=== PATIENT | female | born 1930 | race Caucasian/White ===

== ENCOUNTER 2017-04-03 13:27 | Emergency (ER) | payer MEDICARE, BC ==
[2017-04-03 13:52] VITALS: BP 111/57
--- NOTE | 2017-04-03 14:41 | EDM.PDOC ---
ED HPI GENERAL MEDICAL PROBLEM - General Chief Complaint: Abdominal Pain Stated Complaint: WEAKNESS,PAIN Time Seen by Provider: 04/03/17 13:55 Source of Information: Reports: Patient, Family, Other (pt fell about 1.5 weeks ago and she is having pain in the rt upper abdoman and rt chest. ) - History of Present Illness Onset: Gradual Duration: Day(s):, Other ( Pt has been somewht constipated. ) Location: Reports: Chest, Abdomen Associated Symptoms: Reports: Chest Pain, Other ( Pt did have pneumonia in jun. ) Right Lower Abdominal Pain Score (Numeric/FACES): 7 - Related Data Allergies Allergy/AdvReac Type Severity Reaction Status Date / Time No Known Allergies Allergy Verified 07/03/16 12:27 Home Meds: Home Meds Albuterol [Ventolin HFA] 2 inh INH Q4HR PRN 07/03/16 [History] Allopurinol 300 mg PO DAILY 07/03/16 [History] Aspirin 81 mg PO DAILY 07/03/16 [History] Cyanocobalamin (Vitamin B-12) [B-12] 1,000 mcg PO DAILY 07/03/16 [History] Furosemide 80 mg PO BID 07/03/16 [History] Gabapentin 1,200 mg PO BEDTIME 07/03/16 [History] Gabapentin 600 mg PO DAILY 07/03/16 [History] Losartan/Hydrochlorothiazide [Losartan-HCTZ 100-12.5 MG] 1 tab PO DAILY [History] Metoprolol Tartrate 25 mg PO BID 07/03/16 [History] Nitroglycerin 0.4 mg SL ASDIRECTED PRN 07/03/16 [History] Potassium Chloride 20 meq PO BID 07/03/16 [History] cycloSPORINE [Restasis] 1 drp TOP BID 07/03/16 [History] glipiZIDE [Glipizide] 5 mg PO BID 07/03/16 [History] metFORMIN [Glucophage] 500 mg PO DAILY 07/03/16 [History] Citalopram [Citalopram HBr] 10 mg PO DAILY #30 tablet 07/09/16 [Rx] Warfarin [Coumadin] 1.25 mg PO SuTuWeThSa@1300 tablet 07/09/16 [Rx] Warfarin [Coumadin] 2.5 mg PO MoFr@1300 tablet 07/09/16 [Rx] rOPINIRole [Requip] 0.5 mg PO BEDTIME #30 tablet 07/09/16 [Rx] Allopurinol [Zyloprim] 300 mg PO DAILY 04/03/17 [History] Gabapentin [Neurontin] 600 mg PO ACBREAKFAST 04/03/17 [History] Metolazone [Metolazone] 1 tab PO ASDIRECTED 04/03/17 [History] Past Medical History HEENT History: Reports: Impaired Vision Cardiovascular History: Reports: Afib, High Cholesterol, Hypertension, Other ( See Below) Other Cardiovascular History: SA node dysfunction, mitral valve insufficiency, aortic valve insufficiency,tricuspid valve disease, Respiratory History: Reports: Other (See Below) Other Respiratory History: congestive heart failure Genitourinary History: Reports: Other (See Below) Other Genitourinary History: hyperuricemia 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: Musculoskeletal History: Reports: Osteoarthritis Neurological History: Reports: Other (See Below) Other Neuro History: restless leg syndrome Endocrine/Metabolic History: Reports: Diabetes, Type II Hematologic History: Reports: Anemia Oncologic (Cancer) History: Reports: Other (See Below) Other Oncologic History: malignant neoplasm lip Dermatologic History: Reports: Other (See Below) Other Dermatologic History: malignant neoplasm lip - Past Surgical History Cardiovascular Surgical History: Reports: Pacer Respiratory Surgical History: Reports: None Female Surgical History: Reports: Oophorectomy Social & Family History - Tobacco Use Smoking Status *Q: Never Smoker Second Hand Smoke Exposure: No - Caffeine Use Caffeine Use: Reports: Coffee - Recreational Drug Use Recreational Drug Use: No ED ROS GENERAL - Review of Systems Review Of Systems: See Below Constitutional: Reports: No Symptoms HEENT: Reports: No Symptoms Respiratory: Reports: No Symptoms Cardiovascular: Reports: No Symptoms Endocrine: Reports: No Symptoms GI/Abdominal: Reports: Abdominal Pain, Other (pt has pain in the rt upper abdoman. She also has pain in the rt chest area under the scapula. She hurts when she moves and she has difficulty getting up and down. She has bruising on her back and some on her abdoman. ) : Reports: No Symptoms Musculoskeletal: Reports: No Symptoms Skin: Reports: No Symptoms ED EXAM, GI/ABD - Physical Exam Exam: See Below Text/Narrative:: Pt arrived with pain in the upper rt abdoman and pain in the rt post chest. She hurts to move . About 1.5 weeks ago she slide off the bed and twisted slightly. Exam Limited By: No Limitations General Appearance: Alert, Mild Distress Ears: Normal TMs Nose: Normal Inspection Throat/Mouth: Normal Inspection Head: Atraumatic Neck: Normal Inspection Respiratory/Chest: Other (pt is tender in the rt chest and also in the post chest below the scapula. She has some tenderness under the rib cage on the rt. ) Cardiovascular: Regular Rate, Rhythm GI/Abdominal Exam: Tender, Other ( Mild rt upper bdomanl tenderness. ) (Female) Exam: Deferred Rectal (Female) Exam: Deferred Back Exam: No: Other ( bruised on the rt back area below the scapula. She is tender topalpate. ) Extremities: Normal Inspection Neurological: Alert, Oriented, Normal Cognition Course - Vital Signs Last Recorded V/S: Last Vital Signs Temp 35.9 C 04/03/17 13:55 Pulse 73 04/03/17 13:55 Resp 20 04/03/17 13:55 BP 111/57 L 04/03/17 13:55 Pulse Ox 96 04/03/17 13:55 - Orders/Labs/Meds Labs: Laboratory Tests 04/03/17 04/03/17 04/03/17 Range/Units 14:10 14:10 14:12 WBC 9.0 (4.5-11.0) K/uL RBC 3.69 (3.30-5.50) M/uL Hgb 11.7 L (12.0-15.0) g/dL Hct 37.6 (36.0-48.0) % MCV 102 H (80-98) fL MCH 32 H (27-31) pg MCHC 31 L (32-36) % Plt Count 223 (150-400) K/uL Neut % (Auto) 69 H (36-66) % Lymph % (Auto) 19 L (24-44) % [place] % (Auto) 7 H (2-6) % Eos % (Auto) 6 H (2-4) % Baso % (Auto) 0 (0-1) % PT 34.0 H (9.5-12.0) sec INR 3.03 H (0.80-1.20) Sodium 136 L (140-148) mmol/L Potassium 3.9 (3.6-5.2) mmol/L Chloride 94 L (100-108) mmol/L Carbon Dioxide 36 H (21-32) mmol/L Anion Gap 9.9 (5.0-14.0) mmol/L BUN 65 H D (7-18) mg/dL Creatinine 1.5 H (0.6-1.0) mg/dL Est Cr Clr Drug Dosing 20.50 mL/min Estimated GFR (MDRD) 33 L (>60) Glucose 319 H (74-106) mg/dL Calcium 9.6 (8.5-10.1) mg/dL Total Bilirubin 0.6 (0.2-1.0) mg/dL AST 25 (15-37) U/L ALT 23 (12-78) U/L Alkaline Phosphatase 77 (46-116) U/L C-Reactive Protein (0.0-0.3) mg/dL Total Protein 7.3 (6.4-8.2) g/dL Albumin 3.4 (3.4-5.0) g/dL Globulin 3.9 H (2.3-3.5) g/dL Albumin/Globulin Ratio 0.9 L (1.2-2.2) Urine Color Urine Appearance Urine pH (4.5-8.0) Ur Specific [place] (1.008-1.030) Urine Protein (NEGATIVE) mg/dL Urine Glucose (UA) (NEGATIVE) mg/dL Urine Ketones (NEGATIVE) mg/dL Urine Occult Blood (NEGATIVE) Urine Nitrite (NEGATIVE) Urine Bilirubin (NEGATIVE) Urine Urobilinogen (NORMAL) mg/dL Ur Leukocyte Esterase (NEGATIVE) Urine RBC (0-5) Urine WBC (0-5) Ur Epithelial Cells Amorphous Sediment Urine Bacteria Urine Mucus 04/03/17 04/03/17 Range/Units 14:12 15:06 WBC (4.5-11.0) K/uL RBC (3.30-5.50) M/uL Hgb (12.0-15.0) g/dL Hct (36.0-48.0) % MCV (80-98) fL MCH (27-31) pg MCHC (32-36) % Plt Count (150-400) K/uL Neut % (Auto) (36-66) % Lymph % (Auto) (24-44) % [place] % (Auto) (2-6) % Eos % (Auto) (2-4) % Baso % (Auto) (0-1) % PT (9.5-12.0) sec INR (0.80-1.20) Sodium (140-148) mmol/L Potassium (3.6-5.2) mmol/L Chloride (100-108) mmol/L Carbon Dioxide (21-32) mmol/L Anion Gap (5.0-14.0) mmol/L BUN (7-18) mg/dL Creatinine (0.6-1.0) mg/dL Est Cr Clr Drug Dosing mL/min Estimated GFR (MDRD) (>60) Glucose (74-106) mg/dL Calcium (8.5-10.1) mg/dL Total Bilirubin (0.2-1.0) mg/dL AST (15-37) U/L ALT (12-78) U/L Alkaline Phosphatase (46-116) U/L C-Reactive Protein 1.11 H (0.0-0.3) mg/dL Total Protein (6.4-8.2) g/dL Albumin (3.4-5.0) g/dL Globulin (2.3-3.5) g/dL Albumin/Globulin Ratio (1.2-2.2) Urine Color Yellow Urine Appearance Clear Urine pH 7.0 (4.5-8.0) Ur Specific [place] 1.010 (1.008-1.030) Urine Protein Negative (NEGATIVE) mg/dL Urine Glucose (UA) Normal (NEGATIVE) mg/dL Urine Ketones Negative (NEGATIVE) mg/dL Urine Occult Blood Negative (NEGATIVE) Urine Nitrite Negative (NEGATIVE) Urine Bilirubin Negative (NEGATIVE) Urine Urobilinogen Normal (NORMAL) mg/dL Ur Leukocyte Esterase Small (NEGATIVE) Urine RBC 0-5 (0-5) Urine WBC 0-5 (0-5) Ur Epithelial Cells Rare Amorphous Sediment Not seen Urine Bacteria Not seen Urine Mucus Not seen Meds: Medications Discontinued Medications Generic Name Dose Route Start Last Admin Trade Name Freq PRN Reason Stop Dose Admin Hydromorphone HCl 0.5 mg 04/03/17 15:21 Dilaudid IM 04/03/17 15:22 ONETIME ONE Magnesium Citrate 148 ml 04/03/17 16:26 04/03/17 16:37 Citrate Of Magnesia PO 04/03/17 16:27 148 ml ONETIME ONE Administration - Re-Assessments/Exams Free Text/Narrative Re-Assessment/Exam: 04/03/17 16:44 cat scan of the chest showed some mild atelectasis and some fibosis. Nothing acute appears to be present. No rib fractures were present. Her abdoman cat scan was normal except she has some sludge in her GB. Pt was offer dilaudid and she did not want that. Her lab looked good except she had an elevated creatnine. Departure - Departure Time of Disposition: 16:46 Disposition: Home, Self-Care 01 Condition: Fair Clinical Impression: Contusion of ribs, Contusion of abdominal wall, Constipation - Discharge Information Instructions: Constipation, Adult, Rib Contusion Referrals: Eloy Salgado MD [Primary Care Provider] - Forms: ED Department Discharge Care Plan Goals: push fluids, stool softener, prunes daily tylenol for pain, norco 1/2 to 1 tab q6h--5/325. Rtc if problems. follow up with own physian in 1 week.
[2017-04-03] MEDS ORDERED: HYDROmorphone 0.5 MG/0.5 ML Syringe IM ONE (15:21)
[2017-04-03] MEDS ORDERED: Magnesium Citrate Solution 296 ML Bottle PO ONE (16:26)
== END 2017-04-03 17:00 | disposition home or self-care (01) ==
LOC: JP.ED 13:27
DX: S30.1XXA Contusion of abdominal wall, initial encounter (principal); S20.211A Contusion of right front wall of thorax, initial encounter; E11.9 Type 2 diabetes mellitus without complications; I10 Essential (primary) hypertension; E78.00 Pure hypercholesterolemia, unspecified; Z79.899 Other long term (current) drug therapy; Z79.84 Long term (current) use of oral hypoglycemic drugs; K59.00 Constipation, unspecified; X58.XXXA Exposure to other specified factors, initial encounter
CPT/HCPCS: 36415; 71250; 74176; 80053; 81001; 85025; 85610; 86140; 96372; 99284; A9270; 99283

== ENCOUNTER 2017-07-12 14:55 | Emergency (ER) | payer MEDICARE, BC ==
[2017-07-12] MEDS ORDERED: Albuterol/Ipratropium 3.0-0.5 MG/3 ML Neb Soln NEB ONE (16:24)
[2017-07-12] MEDS ORDERED: Lactated Ringers 1,000 ML IV SCH (16:30)
[2017-07-12] MEDS ORDERED: Piperacillin/Tazobactam 4.5 GM in Sodium Chloride 0.9% 100 ML IV SCH (16:30)
--- NOTE | 2017-07-12 16:30 | EDM.PDOC ---
ED HPI GENERAL MEDICAL PROBLEM - General Chief Complaint: Neuro Symptoms/Deficits Stated Complaint: CONFUSION / ISSUES MOVING Time Seen by Provider: 07/12/17 16:13 Source of Information: Reports: Patient, RN Notes Reviewed History Limitations: Reports: Altered Mental Status - History of Present Illness INITIAL COMMENTS - FREE TEXT/NARRATIVE: 87-year-old female presents to the emergency department today with complaint of confusion and shakes, family members state this all just started this morning they've also noticed that her left leg has increased in size as well as redness and it is warm to the touch. Patient complains of shortness of breath chills and weakness - Related Data Allergies Allergy/AdvReac Type Severity Reaction Status Date / Time No Known Allergies Allergy Verified 07/03/16 12:27 Home Meds: Home Meds Albuterol [Ventolin HFA] 2 inh INH Q4HR PRN 07/03/16 [History] Aspirin 81 mg PO DAILY 07/03/16 [History] Cyanocobalamin (Vitamin B-12) [B-12] 1,000 mcg PO DAILY 07/03/16 [History] Furosemide 80 mg PO BID 07/03/16 [History] Gabapentin 1,200 mg PO BEDTIME 07/03/16 [History] Gabapentin 600 mg PO DAILY 07/03/16 [History] Losartan/Hydrochlorothiazide [Losartan-HCTZ 100-12.5 MG] 1 tab PO DAILY [History] Metoprolol Tartrate 25 mg PO BID 07/03/16 [History] Nitroglycerin 0.4 mg SL ASDIRECTED PRN 07/03/16 [History] Potassium Chloride 20 meq PO BID 07/03/16 [History] cycloSPORINE [Restasis] 1 drp TOP BID 07/03/16 [History] glipiZIDE [Glipizide] 5 mg PO DAILY 07/03/16 [History] metFORMIN [Glucophage] 500 mg PO DAILY 07/03/16 [History] Warfarin [Coumadin] 1.25 mg PO SuTuWeThSa@1300 tablet 07/09/16 [Rx] Warfarin [Coumadin] 2.5 mg PO MoFr@1300 tablet 07/09/16 [Rx] Allopurinol [Zyloprim] 300 mg PO DAILY 04/03/17 [History] Gabapentin [Neurontin] 600 mg PO ACBREAKFAST 04/03/17 [History] Metolazone [Metolazone] 1 tab PO ASDIRECTED 04/03/17 [History] Citalopram [Citalopram HBr] 20 mg PO DAILY 07/12/17 [History] rOPINIRole [Requip] 0.5 mg PO BID 07/12/17 [History] Past Medical History HEENT History: Reports: Cataract, Impaired Vision Cardiovascular History: Reports: Afib, Heart Failure, High Cholesterol, Hypertension, Pacemaker, Other (See Below) Other Cardiovascular History: SA node dysfunction, mitral valve insufficiency, aortic valve insufficiency,tricuspid valve disease, Respiratory History: Reports: Other (See Below) Other Respiratory History: oxygen dependent Genitourinary History: Reports: Other (See Below) Other Genitourinary History: hyperuricemia [employer]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: Musculoskeletal History: Reports: Osteoarthritis Neurological History: Reports: TIA, Other (See Below) Other Neuro History: restless leg syndrome Psychiatric History: Reports: Depression Endocrine/Metabolic History: Reports: Diabetes, Type II, Hypothyroidism Hematologic History: Reports: Anemia, Anticoagulation Therapy, B12 Deficiency Oncologic (Cancer) History: Reports: Other (See Below) Other Oncologic History: malignant neoplasm lip Dermatologic History: Reports: Other (See Below) Other Dermatologic History: malignant neoplasm lip - Past Surgical History HEENT Surgical History: Reports: Cataract Surgery Cardiovascular Surgical History: Reports: Pacer Respiratory Surgical History: Reports: None Female Surgical History: Reports: Hysterectomy, Oophorectomy Social & Family History - Tobacco Use Smoking Status *Q: Never Smoker Second Hand Smoke Exposure: No - Caffeine Use Caffeine Use: Reports: Coffee - Recreational Drug Use Recreational Drug Use: No ED ROS GENERAL - Review of Systems Review Of Systems: See Below Constitutional: Reports: Fever, Chills, Weakness HEENT: Reports: No Symptoms Respiratory: Reports: Shortness of Breath, Wheezing. Denies: Cough Cardiovascular: Reports: No Symptoms GI/Abdominal: Reports: No Symptoms : Reports: No Symptoms Musculoskeletal: Reports: No Symptoms Skin: Reports: Pallor, Rash, Erythema, Wound Neurological: Reports: No Symptoms ED EXAM, GENERAL - Physical Exam Exam: See Below Free Text/Narrative:: General: 87-year-old female visibly ill chills Reiger's, alert and oriented x3 HEENT: head is atraumatic normocephalic, eyes pupils equal round reactive to light, sclera clear no conjunctivitis appreciated. Ears tympanic membranes clear and flowers landmarks and light reflex are present bilaterally canals are clear. Nose no septal deviation, nares are clear, no blood present. Mouth mucosa is dry and pink no erythema or exudate noted in soft palate, tongue is midline uvula is midline, dentition is intact. Neck: Supple no thyromegaly no tracheal deviation. Nodes: Cervical nodes subclavicular nodes nontender no palpable lymphadenopathy noted. Lungs: Wheezing expiratory phase mid to lower lung cowan bilaterally CV: Irregularly irregular rate and rhythm S1 and S2 appreciated no murmurs rubs or gallops noted. Abdomen: Soft, nontender, no palpable masses or organomegaly appreciated, no distention no guarding bowel sounds are present, . Neuro: Cranial nerves II through XII grossly intact Skin: Does have an open wound on the left lower extremity consistent with a plantar's wart that is broken open this foot has mild edema it is erythematous and warm to the touch Extremities: No lower extremity edema appreciated, pedal pulse is +2. Course - Vital Signs Last Recorded V/S: Last Vital Signs Temp 99 F 07/12/17 14:58 Pulse 64 07/12/17 18:02 Resp 12 07/12/17 18:02 BP 98/44 L 07/12/17 18:21 Pulse Ox 86 L 07/12/17 18:02 - Orders/Labs/Meds Orders: Active Orders 24 hr Category Date Time Status BIPAP Adult [RT BiPAP/CPAP] [RC] ASDIRECTED Care 07/12/17 17:33 Active Peripheral IV Care [RC] . DIRECTED Care 07/12/17 17:46 Active RT Aerosol Therapy [RC] ASDIRECTED Care 07/12/17 16:25 Active Vital Signs [RC] Q1H Care 07/12/17 16:20 Active Chest 1V Frontal [CR] Urgent Exams 07/12/17 16:24 Taken CULTURE BLOOD [BC] Urgent Lab 07/12/17 17:00 Received CULTURE BLOOD [BC] Urgent Lab 07/12/17 17:10 Received INR,PT,PROTHROMBIN TIME [COAG] Urgent Lab 07/12/17 18:13 Received Lactated Ringers [Ringers, Lactated] 1,000 ml Med 07/12/17 16:30 Active IV ASDIRECTED Sodium Chloride 0.9% [Saline Flush] Med 07/12/17 17:46 Active 10 ml FLUSH ASDIRECTED PRN Blood Culture x2 Reflex Set [OM.PC] Urgent Oth 07/12/17 16:20 Ordered Peripheral IV Insertion Adult [OM.PC] Urgent Oth 07/12/17 17:46 Ordered Medication Orders Lactated Ringer's (Ringers, Lactated) 1,000 mls @ 999 mls/hr IV ASDIRECTED NALDO Last Admin: 07/12/17 17:00 Dose: 999 mls/hr Sodium Chloride (Saline Flush) 10 ml FLUSH ASDIRECTED PRN PRN Reason: Keep Vein Open Labs: Laboratory Tests 07/12/17 07/12/17 07/12/17 Range/Units 16:20 16:20 16:20 WBC 13.9 H (4.5-11.0) K/uL RBC 3.93 (3.30-5.50) M/uL Hgb 12.3 (12.0-15.0) g/dL Hct 39.2 (36.0-48.0) % MCV 100 H (80-98) fL MCH 31 (27-31) pg MCHC 31 L (32-36) % Plt Count 255 (150-400) K/uL Neut % (Auto) 72 H (36-66) % Lymph % (Auto) 17 L (24-44) % [place] % (Auto) 11 H (2-6) % Eos % (Auto) 0 L (2-4) % Baso % (Auto) 0 (0-1) % Puncture Site ABG pH (7.350-7.450) ABG pCO2 (35.0-42.0) mmHg ABG pO2 (75.0-100.0) mmHg ABG HCO3 (22.0-26.0) mmol/L ABG Total CO2 (21.0-25.0) mmol/L ABG O2 Saturation (95.0-98.0) % ABG O2 Content (15.0-23.0) %vol ABG Base Excess mm/L ABG Hemoglobin (12.0-16.0) g/dL ABG Oxyhemoglobin % ABG Carboxyhemoglobin (0.0-1.6) % ABG Methemoglobin % Artis Test O2 Delivery Device Oxygen Flow Rate L Sodium 137 L (140-148) mmol/L Potassium 3.9 (3.6-5.2) mmol/L Chloride 97 L (100-108) mmol/L Carbon Dioxide 30 (21-32) mmol/L Anion Gap 13.9 (5.0-14.0) mmol/L BUN 77 H* (7-18) mg/dL Creatinine 1.8 H (0.6-1.0) mg/dL Est Cr Clr Drug Dosing 16.76 mL/min Estimated GFR (MDRD) 26 L (>60) Glucose 193 H (74-106) mg/dL Lactic Acid 2.4 H (0.4-2.0) mmol/L Calcium 9.8 (8.5-10.1) mg/dL Total Bilirubin 0.6 (0.2-1.0) mg/dL AST 15 (15-37) U/L ALT 19 (12-78) U/L Alkaline Phosphatase 69 (46-116) U/L C-Reactive Protein 7.52 H (0.0-0.3) mg/dL NT-Pro-B Natriuret Pep (5-450) pg/mL Total Protein 7.9 (6.4-8.2) g/dL Albumin 3.6 (3.4-5.0) g/dL Globulin 4.3 H (2.3-3.5) g/dL Albumin/Globulin Ratio 0.8 L (1.2-2.2) Urine Color Urine Appearance Urine pH (4.5-8.0) Ur Specific [place] (1.008-1.030) Urine Protein (NEGATIVE) mg/dL Urine Glucose (UA) (NEGATIVE) mg/dL Urine Ketones (NEGATIVE) mg/dL Urine Occult Blood (NEGATIVE) Urine Nitrite (NEGATIVE) Urine Bilirubin (NEGATIVE) Urine Urobilinogen (NORMAL) mg/dL Ur Leukocyte Esterase (NEGATIVE) Urine RBC (0-5) Urine WBC (0-5) Ur Epithelial Cells Amorphous Sediment Urine Bacteria Urine Mucus 07/12/17 07/12/17 07/12/17 Range/Units 16:27 17:06 17:13 WBC (4.5-11.0) K/uL RBC (3.30-5.50) M/uL Hgb (12.0-15.0) g/dL Hct (36.0-48.0) % MCV (80-98) fL MCH (27-31) pg MCHC (32-36) % Plt Count (150-400) K/uL Neut % (Auto) (36-66) % Lymph % (Auto) (24-44) % [place] % (Auto) (2-6) % Eos % (Auto) (2-4) % Baso % (Auto) (0-1) % Puncture Site Rt brachial ABG pH 7.519 H (7.350-7.450) ABG pCO2 36.4 (35.0-42.0) mmHg ABG pO2 66.4 L (75.0-100.0) mmHg ABG HCO3 29.5 H (22.0-26.0) mmol/L ABG Total CO2 25.9 H (21.0-25.0) mmol/L ABG O2 Saturation 95.3 (95.0-98.0) % ABG O2 Content 16.0 (15.0-23.0) %vol ABG Base Excess 6.6 mm/L ABG Hemoglobin 12.4 (12.0-16.0) g/dL ABG Oxyhemoglobin 92.1 % ABG Carboxyhemoglobin 2.9 H (0.0-1.6) % ABG Methemoglobin 0.5 % Artis Test Passed O2 Delivery Device Nasal cannula Oxygen Flow Rate 4 L Sodium (140-148) mmol/L Potassium (3.6-5.2) mmol/L Chloride (100-108) mmol/L Carbon Dioxide (21-32) mmol/L Anion Gap (5.0-14.0) mmol/L BUN (7-18) mg/dL Creatinine (0.6-1.0) mg/dL Est Cr Clr Drug Dosing mL/min Estimated GFR (MDRD) (>60) Glucose (74-106) mg/dL Lactic Acid (0.4-2.0) mmol/L Calcium (8.5-10.1) mg/dL Total Bilirubin (0.2-1.0) mg/dL AST (15-37) U/L ALT (12-78) U/L Alkaline Phosphatase (46-116) U/L C-Reactive Protein (0.0-0.3) mg/dL NT-Pro-B Natriuret Pep 5807 H (5-450) pg/mL Total Protein (6.4-8.2) g/dL Albumin (3.4-5.0) g/dL Globulin (2.3-3.5) g/dL Albumin/Globulin Ratio (1.2-2.2) Urine Color Yellow Urine Appearance Clear Urine pH 6.0 (4.5-8.0) Ur Specific [place] 1.010 (1.008-1.030) Urine Protein Negative (NEGATIVE) mg/dL Urine Glucose (UA) Normal (NEGATIVE) mg/dL Urine Ketones Negative (NEGATIVE) mg/dL Urine Occult Blood Negative (NEGATIVE) Urine Nitrite Negative (NEGATIVE) Urine Bilirubin Negative (NEGATIVE) Urine Urobilinogen Normal (NORMAL) mg/dL Ur Leukocyte Esterase Negative (NEGATIVE) Urine RBC 0-5 (0-5) Urine WBC 0-5 (0-5) Ur Epithelial Cells Rare Amorphous Sediment Rare Urine Bacteria Not seen Urine Mucus Rare Meds: Medications Generic Name Dose Route Start Last Admin Trade Name Freq PRN Reason Stop Dose Admin Lactated Ringer's 1,000 mls @ 999 mls/hr 07/12/17 16:30 07/12/17 17:00 Ringers, Lactated IV 999 mls/hr ASDIRECTED NALDO Administration Sodium Chloride 10 ml 07/12/17 17:46 Saline Flush FLUSH ASDIRECTED PRN Keep Vein Open Discontinued Medications Generic Name Dose Route Start Last Admin Trade Name Freq PRN Reason Stop Dose Admin Albuterol/Ipratropium 3 ml 07/12/17 16:24 07/12/17 17:05 Duoneb 3.0-0.5 Mg/3 Ml NEB 07/12/17 16:25 3 ml ONETIME ONE Administration Furosemide 80 mg 07/12/17 17:46 07/12/17 18:17 Lasix IVPUSH 07/12/17 17:47 80 mg ONETIME ONE Administration Piperacillin Sod/Tazobactam 100 mls @ 200 mls/hr 07/12/17 16:30 Sod 4.5 gm/ Sodium Chloride IV Q6H NALDO Vancomycin HCl 1 gm/ Sodium 250 mls @ 150 mls/hr 07/12/17 16:23 07/12/17 17: 01 Chloride IV 07/12/17 18:02 150 mls/hr ONETIME ONE Administration Piperacillin/Tazobactam/ 100 mls @ 200 mls/hr 07/12/17 16:45 07/12/17 18:21 Dextrose 4.5 gm/ Premix IV 07/12/17 17:14 200 mls/hr ONETIME ONE Administration Morphine Sulfate 2 mg 07/12/17 17:48 07/12/17 18:17 Morphine IVPUSH 07/12/17 17:49 2 mg ONETIME ONE Administration Nitroglycerin 0.4 mg 07/12/17 17:45 07/12/17 18:21 Nitrostat SL 07/12/17 17:46 0.4 mg ONETIME ONE Administration Departure - Departure Time of Disposition: 18:25 Disposition: DC/Tfer to [facility] 02 Condition: Fair Clinical Impression: Confusion, Cellulitis of left foot Sepsis Qualifiers: Sepsis type: sepsis due to unspecified organism Qualified Code(s): A41.9 - Sepsis, unspecified organism - Discharge Information Referrals: Eloy Salgado MD [Primary Care Provider] - Forms: ED Department Discharge Critical Care Note - Critical Care Note Total Time (mins): 45 Comments: Early sepsis with rigers - My Orders Last 24 Hours: My Active Orders 07/12/17 16:20 Vital Signs [RC] Q1H Blood Culture x2 Reflex Set [OM.PC] Urgent 07/12/17 16:24 Chest 1V Frontal [CR] Urgent 07/12/17 16:25 RT Aerosol Therapy [RC] ASDIRECTED 07/12/17 16:30 Lactated Ringers [Ringers, Lactated] 1,000 ml IV ASDIRECTED 07/12/17 17:00 CULTURE BLOOD [BC] Urgent 07/12/17 17:10 CULTURE BLOOD [BC] Urgent 07/12/17 17:33 BIPAP Adult [RT BiPAP/CPAP] [RC] ASDIRECTED 07/12/17 17:46 Peripheral IV Care [RC] . DIRECTED Sodium Chloride 0.9% [Saline Flush] 10 ml FLUSH ASDIRECTED PRN Peripheral IV Insertion Adult [OM.PC] Urgent 07/12/17 18:13 INR,PT,PROTHROMBIN TIME [COAG] Urgent - Assessment/Plan Last 24 Hours: My Active Orders 07/12/17 16:20 Vital Signs [RC] Q1H Blood Culture x2 Reflex Set [OM.PC] Urgent 07/12/17 16:24 Chest 1V Frontal [CR] Urgent 07/12/17 16:25 RT Aerosol Therapy [RC] ASDIRECTED 07/12/17 16:30 Lactated Ringers [Ringers, Lactated] 1,000 ml IV ASDIRECTED 07/12/17 17:00 CULTURE BLOOD [BC] Urgent 07/12/17 17:10 CULTURE BLOOD [BC] Urgent 07/12/17 17:33 BIPAP Adult [RT BiPAP/CPAP] [RC] ASDIRECTED 07/12/17 17:46 Peripheral IV Care [RC] . DIRECTED Sodium Chloride 0.9% [Saline Flush] 10 ml FLUSH ASDIRECTED PRN Peripheral IV Insertion Adult [OM.PC] Urgent 07/12/17 18:13 INR,PT,PROTHROMBIN TIME [COAG] Urgent Plan: Assessment Acuity = acute Site and laterality = sepsis secondary to cellulitis complicated in a patient with known history of congestive heart failure, diabetes mellitus type 2, dyslipidemia and hypertension Etiology = suspicious for bacterial cause Manifestations = fever, confusion, hypoxia Location of injury = Home Lab values = WBC elevated at 13.9 consistent with leukocytosis pH 7.5 PCO2 of 66.4 PCO2 36.4 and a bicarbonate 29.5 consistent with chronic respiratory alkalosis primary, BUN elevated 77 creatinine 1.8 consistent chronic renal failure stage GIV lactic acid elevated at 2.4 consistent lactic acidosis CRP elevated 7.5 to BNP 5807 consistent fluid overload type pattern congestive heart failure, urinalysis negative chest x-ray shows cardiomegaly with fluid overload type pattern Plan Initiated antibiotics of Zosyn and vancomycin blood cultures are pending she did receive 1 L of fluids as well as sublingual nitroglycerin 1 and 80 mg Lasix IV, CPAP was initiated prior to departure. Called and discussed case with Dr. Low kindly accepted the patient in transport she will be transported via EMS ground This note was dictated using [employer] voice recognition software please call with any questions on syntax or marko.
[2017-07-12] MEDS ORDERED: Piperacillin/Tazobactam/Dext 4.5 GM in Premix Bag 1 BAG IV ONE (16:45)
[2017-07-12] MEDS ORDERED: Nitroglycerin 0.4 MG Tab.SL SL ONE (17:45)
[2017-07-12] MEDS ORDERED: Furosemide 40 MG/4 ML VIAL IVPUSH ONE (17:46)
[2017-07-12] MEDS ORDERED: Sodium Chloride 0.9% 10 ML Syringe FLUSH PRN (17:46)
[2017-07-12] MEDS ORDERED: Morphine 2 MG/ML Syringe IVPUSH ONE (17:48)
[2017-07-12 18:22] VITALS: BP 98/44
--- NOTE | 2017-07-13 08:40 | CR ---
Findings: Cardiomegaly. Interstitial thickening which can be seen in interstitial edema. No focal con solidation. Probable rib end only within the right lung base but recommend 2 view x-ray follow-up in upright position to exclude a pulmonary nodule.
== END 2017-07-12 18:55 ==
LOC: JP.ED 14:55
DX: A41.9 Sepsis, unspecified organism (principal); L03.116 Cellulitis of left lower limb; R41.0 Disorientation, unspecified; I11.0 Hypertensive heart disease with heart failure; I50.9 Heart failure, unspecified; I48.91 Unspecified atrial fibrillation; E78.00 Pure hypercholesterolemia, unspecified; F32.9 Major depressive disorder, single episode, unspecified; E11.9 Type 2 diabetes mellitus without complications; E03.9 Hypothyroidism, unspecified; Z79.01 Long term (current) use of anticoagulants; Z95.0 Presence of cardiac pacemaker; Z99.81 Dependence on supplemental oxygen; Z79.82 Long term (current) use of aspirin; Z79.84 Long term (current) use of oral hypoglycemic drugs; Z79.899 Other long term (current) drug therapy
CPT/HCPCS: 36600; 71045; 80053; 81001; 82803; 83605; 83880; 85025; 85610; 86140; 87040; 87804; 94640; 94660; 99285; J1940; J2270; J2543; J3370; J7050; J7120; J7620; A9270-GY